=== PATIENT | female | born 1995 | race African-American/Black ===

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

== ENCOUNTER 2017-02-21 21:09 | Emergency (ER) | payer BC ==
[~2017-02-21 21:09] MED LIST: CYCL10TA PO; IBUP1TAB7 PO
[2017-02-21 21:11] VITALS: BP 128/65; PULSE 56; RESP 16; TEMP 98.7; O2SAT 100
--- NOTE | 2017-02-21 22:45 | PD ---
HPI Chief Complaint: Musculoskeletal Complaint Time Seen by Provider: 22:38 Travel History International Travel<30 days: No Contact w/Intl Traveler<30days: No Traveled to known affect area: No History of Present Illness HPI 21-year-old black female presents to emergency department with complaints of lower back pain 2 months. She was seen by her doctor approximately one month ago was diagnosed with sciatica. She was given diclofenac. She states that she 's taking it without relief. She denies any numbness, tingling or weakness. No acute bowel or bladder changes. She states the pain is worse when she bends and moves. Some relief remaining still. Pain is mild to moderate. No history of trauma. She has not been back to her doctor in a month. She states that she is not due to go back until a few weeks. History Past Medical Histgory LMP: 02/13/17 Social History Alcohol Use: No Tobacco Use: No Allergies-Medications (Allergen,Severity, Reaction): Coded Allergies: No Known Allergies (Unverified , 04/26/16) Reported Meds & Prescriptions Reported Meds & Active Scripts Active Flexeril (Cyclobenzaprine HCl) 10 Mg Tab 10 Mg PO TID Ibuprofen 800 Mg Tab 800 Mg PO TID Review of Systems Except as stated in HPI: all other systems reviewed are Neg Physical Exam Narrative GENERAL: This is a well-nourished, well-developed patient, in no apparent distress. SKIN: No rashes, ecchymoses or lesions. Warm and dry. HEAD: Atraumatic. Normocephalic. EYES: PERRL, EOMI, no discharge or injection. No scleral icterus. EARS: Clear NOSE: Nasal turbinates appear normal. THROAT: Mucosa pink and moist. Airway patent. NECK: Trachea midline. supple, moves head freely. LUNGS: Clear to auscultation. CV: Regular in rhythm. ABDOMEN: Soft nontender. EXT: No clubbing cyanosis or edema. Back: No central bony tenderness to palpation of the dorsal lumbar spine. Patient was a paraspinal lower lumbar tenderness. Able to bend forward and toe touch. She is able to heel and toe stand. No saddle anesthesia. No gross spasm. Normal gait. Data Data Last Documented VS Vital Signs Date Time Temp Pulse Resp B/P (MAP) Pulse Ox O2 Delivery O2 Flow Rate FiO2 02/21/17 21:11 98.7 56 16 128/65 (86) 100 Room Air MDM Medical Screen Exam Complete: Yes Emergency Medical Condition: No Differential Diagnosis MDM: High Differential diagnoses: Fracture, sprain, strain, HNP, nerve or vascular injury , epidural abscess, pilonidal cyst Narrative Course A medical screening exam was performed: At the time of evaluation the presenting medical condition was determined not to be of an emergent nature. The patient was given the option of receiving additional care, but declined. Patient was given options for additional community resources from which to obtain care. The Patient Has Been advised to seek medical attention for their presenting complaint. The patient has been advised to return to the ER at any time if an emergent condition develops. Primary Impression: Encounter for medical screening examination Condition: Stable Ming To Feb 21, 2017 22:45
== END 2017-02-21 22:49 | disposition left against medical advice (07) ==
LOC: NEPK 21:09
DX: M54.5 Low back pain (principal); Z79.899 Other long term (current) drug therapy
CPT/HCPCS: 99281

== ENCOUNTER 2017-02-21 23:30 | Emergency (ER) | payer BC ==
[~2017-02-21] VITALS: Ht 157.5 cm; Wt 68.0 kg
[2017-02-21 23:31] VITALS: BP 144/106; PULSE 58; RESP 16; TEMP 97.8; O2SAT 100
--- NOTE | 2017-02-22 00:31 | PD ---
HPI Chief Complaint: Back/ Neck Pain or Injury Time Seen by Provider: 23:58 Travel History International Travel<30 days: No Contact w/Intl Traveler<30days: No Traveled to known affect area: No History of Present Illness HPI 21-year-old black female presents to emergency department a second time after being just discharged within approximately one hour ago. She had left after having a medical screening exam. She once again returns requesting to be evaluated. She has had no change in her symptomatology. History Past Medical Histgory LMP: 02/13/17 Social History Alcohol Use: No Tobacco Use: No Allergies-Medications (Allergen,Severity, Reaction): Coded Allergies: No Known Allergies (Unverified Adverse Reaction, Unknown, 02/21/17) Reported Meds & Prescriptions Reported Meds & Active Scripts Active Flexeril (Cyclobenzaprine HCl) 10 Mg Tab 10 Mg PO TID Ibuprofen 800 Mg Tab 800 Mg PO TID Review of Systems General / Constitutional: No: Fever Eyes: No: Visual changes HENT: No: Headaches Cardiovascular: No: Chest Pain or Discomfort Respiratory: No: Shortness of Breath Gastrointestinal: No: Abdominal Pain Genitourinary: No: Dysuria Musculoskeletal: Positive: Pain Skin: No Rash Neurologic: No: Weakness Psychiatric: No: Depression Endocrine: No: Polydipsia Hematologic/Lymphatic: No: Easy Bruising Physical Exam Narrative GENERAL: This is a well-nourished, well-developed patient, in no apparent distress. SKIN: No rashes, ecchymoses or lesions. Warm and dry. HEAD: Atraumatic. Normocephalic. EYES: PERRL, EOMI, no discharge or injection. No scleral icterus. EARS: Clear NOSE: Nasal turbinates appear normal. THROAT: Mucosa pink and moist. Airway patent. NECK: Trachea midline. supple, moves head freely. LUNGS: Clear to auscultation. CV: Regular in rhythm. ABDOMEN: Soft nontender. EXT: No clubbing cyanosis or edema. Back: No central bony tenderness to palpation of the dorsal lumbar spine. Patient was a paraspinal lower lumbar tenderness. Able to bend forward and toe touch. She is able to heel and toe stand. No saddle anesthesia. No gross spasm. Normal gait. Data Data Last Documented VS Vital Signs Date Time Temp Pulse Resp B/P (MAP) Pulse Ox O2 Delivery O2 Flow Rate FiO2 02/21/17 23:31 97.8 58 16 144/106 (119) 100 Room Air MDM Medical Screen Exam Complete: Yes Emergency Medical Condition: No Differential Diagnosis MDM: High Differential diagnoses: Fracture, sprain, strain, HNP, nerve or vascular injury , epidural abscess, pilonidal cyst Narrative Course The patient was on the phone and attempting to conference call with I believe her mother on the phone. I explained to the patient that I would not continue to carry on our history and exam so long as she is on the phone. I informed her that I will allow her to finish up her call. The patient states that there has been no change since being evaluated approximately an hour ago. I have just repeated the exam from prior or physical. I have notified the financial counselor to evaluate the patient. A medical screening exam was performed: At the time of evaluation the presenting medical condition was determined not to be of an emergent nature. The patient was given the option of receiving additional care, but declined. Patient was given options for additional community resources from which to obtain care. The Patient Has Been advised to seek medical attention for their presenting complaint. The patient has been advised to return to the ER at any time if an emergent condition develops. Primary Impression: Encounter for medical screening examination Condition: Ming Silva Feb 22, 2017 00:31
== END 2017-02-21 23:40 | disposition left against medical advice (07) ==
LOC: NEPK 23:30
DX: M54.9 Dorsalgia, unspecified (principal)
CPT/HCPCS: 99281